=== PATIENT | male | born 1985 | race Caucasian/White ===

== ENCOUNTER 2016-10-05 09:43 | Emergency (ER) | payer OTHER ==
[~2016-10-05] VITALS: Ht 172.7 cm; Wt 70.1 kg
[~2016-10-05 09:43] MED LIST: ASPIRIN325 MG PO; BENTYL10 MG PO; CEFTIN500 MG PO; CITRATE OF MAG296 ML PO; CLONIDINE HCL0.1 MG PO; COLACE100 MG PO; CREON 241 CAPSULE PO; DAILY VITAMIN1 EAC8 PO; DILAUDID2 MG PO; DILAUDID4 MG PO; ESCITALOPRAM OX10 MG PO; FLEET MINERAL133 ML PR; FOLIC ACID1 MG PO; HYDROCODON-ACE1 EAC8 PO; HYOSCYAMINE0.125 MG PO; LEXAPRO10 MG PO; LORTAB 7.5-3251 EACH PO; MOTRIN800 MG PO; NAPROSYN500 MG PO; NAPROXEN500 MG PO; NICOTINE PATCH1 EAC2 TD; NOHOMEMEDS; OMEPRAZOLE40 M1 PO; OXYCODONE HCL10 MG PO; PANTOPRAZOLE SO40 MG PO; PEPCID20 MG PO; PRILOSEC10 MG PO; PRILOSEC40 MG PO; QUETIAPINE FUM200 MG PO; REGLAN10 MG PO; SEROQUEL200 MG PO; THERAGRAN1 TABLET PO; THIAMINE HCL100 MG PO; TRAMADOL HCL50 MG PO; TRAZODONE HCL50 MG PO; TUMS500 MG PO; VITAMIN B-1100 MG PO; ZOFRAN ODT4 MG PO; ZOFRAN4 MG PO; [UNRECOGNIZED DRUG - REMARK] PO
[2016-10-05 10:35] LABS: HEMATOCRIT 54.8 % (38.0-50.0); MCH 30.9 PG (29.0-34.0); MCHC 35.2 G/DL (30.0-36.0); MCV 87.8 FL (86-99); MEAN PLAT.VOLUME 9.2 uM^3 (9.0-12.4); PLATELET COUNT 223 K/uL (156-360); RBC DIS.WIDTH-CV 13.2 % (11.8-14.6); RBC DIS.WIDTH-SD 42.1 % (39-53); RED BLOOD COUNT 6.24 M/uL (4.00-5.50); WHITE BLOOD COUNT 8.5 K/uL (4.1-10.2)
[2016-10-05 10:49] LABS: CHLORIDE 100 mEq/L (99-109); POTASSIUM 3.8 mEq/L (3.7-5.4); SODIUM 135 mEq/L (136-147)
[2016-10-05 10:52] LABS: GLUCOSE 99 mg/dL (70-99)
[2016-10-05 10:53] LABS: ANION GAP 18 MEQ/L (2-14)
[2016-10-05 10:54] LABS: TOTAL BILIRUBIN 0.7 mg/dL (0.0-1.0)
[2016-10-05 10:55] LABS: ALKALINE PHOSPHATASE 68 IU/L (3-129); GFR ESTIMATE (CALCULATED) > 59 mL/min/
[2016-10-05 10:56] LABS: UREA NITROGEN (BUN) 20 mg/dL (9-23)
[2016-10-05 10:59] LABS: LIPASE 4 U/L (1.0-51.0)
[2016-10-05 13:09] LABS: ADD MIUA? YES; BILIRUBIN NEGATIVE; BLOOD NEGATIVE; COLOR AMBER ((YELLOW)); GLUCOSE (STRIP) NEGATIVE; KETONES 20; LEUKOCYTES NEGATIVE; NITRITE NEGATIVE; PROTEIN (STRIP) >=500; SPECIFIC GRAVITY 1.033 (1.000-1.030); UROBILINOGEN 0.2 MG/DL (0.2-1.0)
[2016-10-05 13:31] LABS: BACTERIA NONE SEEN /HPF; EPITHELIAL CELLS NONE SEEN /HPF; MUCUS 4+ /LPF; RED BLOOD CELLS 0-5 /HPF (0-5); UCUL ADDED? NO; WHITE BLOOD CELLS 0-5 /HPF (0-5)
[2016-10-05] MEDS ORDERED: BENTYL20 MG PO (14:43)
[2016-10-05] MEDS ORDERED: ZOFRAN4 MG PO (14:43)
[2016-10-05 14:54] VITALS: BP 123/71
== END 2016-10-05 15:00 | disposition home or self-care (01) ==
LOC: EME 09:43
DX: R10.9 Unspecified abdominal pain (principal); R11.2 Nausea with vomiting, unspecified; R51 Headache; F17.200 Nicotine dependence, unspecified, uncomplicated
CPT/HCPCS: 70450; 80053; 81003; 83690; 85027; 99281; 99284; J1885; J2405; J7030

== ENCOUNTER 2016-10-11 13:06 | Emergency (ER) | payer OTHER ==
[~2016-10-11] VITALS: Ht 172.7 cm; Wt 74.1 kg
[~2016-10-11 13:06] MED LIST changes: +BENTYL20 MG PO
[2016-10-11 14:12] VITALS: BP 121/71
[2016-10-11] MEDS ORDERED: FLEXERIL10 MG PO (16:23)
[2016-10-11] MEDS ORDERED: MOBIC7.5 MG PO (16:23)
== END 2016-10-11 16:41 | disposition home or self-care (01) ==
LOC: EME 13:06
PROC: 3E0234Z Introduction of Serum, Toxoid and Vaccine into Muscle, Percutaneous Approach (ICD-10-PCS; principal; 2016-10-11)
DX: F07.81 Postconcussional syndrome (principal); M54.2 Cervicalgia; S20.419A Abrasion of unspecified back wall of thorax, initial encounter; Z23 Encounter for immunization; W17.89XA Other fall from one level to another, initial encounter; Y92.812 Truck as the place of occurrence of the external cause; Y99.0 Civilian activity done for income or pay; Z88.6 Allergy status to analgesic agent; F17.200 Nicotine dependence, unspecified, uncomplicated
CPT/HCPCS: 70450; 71020; 72125; 99281; 99284; J1885

== ENCOUNTER 2017-04-08 10:37 | Emergency (ER) | payer OTHER ==
[~2017-04-08] VITALS: Ht 175.3 cm; Wt 75.5 kg
[~2017-04-08 10:37] MED LIST changes: +FLEXERIL10 MG PO; +MOBIC7.5 MG PO
[2017-04-08] MEDS ORDERED: FLEXERIL10 MG PO (15:03)
[2017-04-08] MEDS ORDERED: LIDODERM 5% P1 PATCH TD (15:03)
[2017-04-08] MEDS ORDERED: DICLOFENAC SODI75 MG PO (15:03)
[2017-04-08 15:26] VITALS: BP 120/74
== END 2017-04-08 15:27 | disposition home or self-care (01) ==
LOC: EME 10:37
DX: M54.5 Low back pain (principal); F17.200 Nicotine dependence, unspecified, uncomplicated; Z88.6 Allergy status to analgesic agent; Z88.5 Allergy status to narcotic agent
CPT/HCPCS: 99281; 99283